=== PATIENT | female | born 1985 | race Caucasian/White ===

== ENCOUNTER 2024-12-19 12:12 | Outpatient (CLI) | payer BC, SELFPAY ==
--- NOTE | 2024-12-19 | ECG_ITS ---
Test Date: 2024-12-19 12:29:14 Measurements Intervals [place] Rate: 64 P: 33 TX: 146 QRS: 34 QRSD: 93 T: 21 QT: 414 QTc: 428 Interpretive Statements SINUS RHYTHM INCOMPLETE RIGHT BUNDLE BRANCH BLOCK BORDERLINE ECG No previous ECG available for comparison Electronically Signed On 12-19-2024 12:57:09 CDT by Kolby Licona D.O.
--- OUTSIDE RECORDS SUMMARY | 2024-12-19 13:14 | XMS_ITS | Encounter Summary ---
Author Organization [facility] Address [address] [place] [address] Care Team Providers Care Quality Assurance Supervisor Chassis Name Role Phone Aileen Monson MD Primary Care Provider [phone] Jodie Borden DO Primary Care Provider [phone] Encounter Details Date Type Department Care Team (Late st Contact Info) Description 05/23/2021 Photos I Like Message [employer] [facility] for [address] [address] Jalen Mitchell MD [address] [address] RE: Question Social History Tobacco Use Types Packs/Day Years Used Date Smoking Tobacco: Former Cigarettes 0.5 10 Smokeless Tobacco: Never Alcohol Use Standard Drinks/Week Comments Yes 3.3 (1 standard drink = 0.6 oz p ure alcohol) once a month AUDIT-C Answer Date Recorded Q1: How often do you have a drink containing alc ohol? Monthly or less 01/30/2020 Average Number of Drinks Not on file 020 Frequency of Binge Drinking Not on file 01/05 PHQ-2 Answer Date Recorded PHQ-2 Score - If the patient scores above 3, please move on to questions 3-9 0 03/06/2021 Comments No Sex and Gender Information Value Date Recorded Sex Assigned at Not on file Legal Sex Female 6:06 PM CDT Gender Identity Not on file Sexual Orientation Not on file COVID-19 Exposure Response Date Recorded In the last month, have you been in contact with someone who was confirmed or suspected to have Coronavirus / COVID-19? No / Unsure 05/06/2021 9:06 AM CDT documented as of this encounter Plan of Treatment Not on file documented as of this encounter Visit Diagnoses Not on filedocumented in this encounter Additional Health Concerns Assessment Noted Time PHQ-9 Depression Total Score: 0 03/06/20 21 3:21 PM CDT documented as of this encounter Care Teams Quality Assurance Supervisor Chassis Relationship Specialty Start Date End Date Aileen Monson MD PCP - General FAMILY PRACTICE 08/04/19 08/16/24 Jodie Borden DO [address] [place] [address] PCP - General FAMILY PRACTICE 08/17/24 documented as of this encounter
--- OUTSIDE RECORDS SUMMARY | 2024-12-19 13:14 | XMS_ITS | Referral Summary ---
Author Organization [address] Address [address] [place] [phone] Care Team Providers Care Drug Inspector Name Role Phone Jodie Borden DO Primary Care Provider [phone] Allergies No known active allergies Medications levothyroxine (SYNTHROID) 75 mcg tablet Take 1 tablet (75 mcg total) by mouth daily 9 Active norethindrone-et hin estradioL (Nortrel , 28,) 1-35 mg-mcg per tablet Take 1 tablet by mouth daily 2 Active SUMAtriptan (IMITREX) 50 mg tablet Take 1 tablet (50 mg total) by mouth daily as needed 9 Active triamcinolone (KENALOG) 0.1 % creamIndications :Rash and nonspecific skin eruption Apply to affected area 1-2 times daily as needed. Avoid face and groin. 80 g 5 09/14/19 26 Active Active Problems No known active problems Social History Tobacco Use Types Packs/Day Years Used Date Smoking Tobacco: Never Assessed Comments Unknown Sex and Gender Information Value Date Recorded Sex Assigned at Not on file Legal Sex Female 3:31 PM CDT Gender Identity Not on file Sexual Orientation Not on file Last Filed Vital Signs Vital Sign Reading Time Taken Comments Blood Pressure 106/66 09/14/2024 3:05 PM MENTAL HEALTH THERAPIST Pulse 74 09/14/2024 3:05 PM MENTAL HEALTH THERAPIST Temperature 36.7 C (98.1 F) 09/14/2024 3:05 PM MENTAL HEALTH THERAPIST Respiratory Rate 20 09/14/2024 3:05 PM MENTAL HEALTH THERAPIST Oxygen Saturation 98% 09/14/2024 3:05 PM MENTAL HEALTH THERAPIST Inhaled Oxygen Concentration - - Weight 75.3 kg (166 lb) 09/14/2024 3:05 PM MENTAL HEALTH THERAPIST Height - - Body Mass Index - - Plan of Treatment Not on file Insurance [employer] OOS Member Subscriber Plan / Payer (Ef fective 2023-Present) Name:Greta Keller Relation to Subscriber:Self Name:Greta Keller Payer ID:[id number] (NAIC) Type: SALAS Address: [facility] [id number] [place] [id number] Care Teams Drug Inspector Relationship Specialty Start Date End Date Jodie Borden DO [address] [facility] [address] [id number] PCP - General Family Medicine 09/14/24
--- OUTSIDE RECORDS SUMMARY | 2024-12-19 13:14 | XMS_ITS | Clinical Summary ---
Author Organization [facility] Address [address] [place] [address] Care Team Providers Care Geophysical Prospector Name Role Phone Jodie Borden DO Primary Care Provider [phone] Allergies No known active allergies Medications levothyroxine 75 MCG tablet Take 75 mcg by mouth daily. 07/27/2019 Active fluticasone propionate 50 MCG/ACT nasal spray 1 spray by Nasal route as needed. 01/03/2016 Active SUMAtriptan 50 MG tablet Take 50 mg by mouth 2 (two) times daily as needed. 05/15/2019 Active Active Problems Problem Noted Date Diagnosed Date ASCUS with positive high risk HPV cervical 03/04 Other specified hypothyroidism 01/30/2020 PCOS (polycystic ovarian syndrome) 01/30/2020 Immunizations Immunization Administration Dates Next Due Hepatitis B Pediatric 03/04/2004,04/14/2000 Influenza (Generic) 06/05/2016 Influenza Adult (Generic) 08/23/2020,06/05/2016 MODERNA COVID-19 (12+) MRNA, LNP-S, PF, 100 MCG/ 0.5 ML DOSE 04/05/2021,01/14/2021 Meningococcal (Menomune) 03/04/2004 Meningococcal(Mcv 4)Aka Menactra 03/04/2004 Td 04/14/2000 Td (Tenivac) preservative free 04/14/2000 Tdap (Generic) 11/15/2020 Family History Medical History Relation Comments Thyroid Disease Mother Relation Status Comments Father Alive Mother Alive Social History Tobacco Use Types Packs/Day Years Used Date Smoking Tobacco: Former Cigarettes 0.5 10 Smokeless Tobacco: Never Tobacco Cessation:Counseling Given: Yes Alcohol Use Standard Drinks/Week Comments Yes 3.3 [...] Sign Reading Time Taken Comments Blood Pressure 120/72 05/06/2021 9:13 AM CDT Pulse 60 04/21/2021 9:20 AM CDT Temperature 36.2 C (97.2 F) 04/21/2021 9:05 AM CDT Respiratory Rate 14 04/21/2021 9:20 AM CDT Oxygen Saturation 99% 04/21/2021 9:20 AM CDT Inhaled Oxygen Concentration - - Weight 78.8 kg (173 lb 12.8 oz) 05/06/2021 9:13 AM CDT Height 165.1 cm (5' 5 ) 05/06/2021 9:13 AM CDT Body Mass Index 28.92 05/06/2021 9:13 AM CDT Plan of Treatment Health Maintenance Due Date Last Done Comments Hepatitis B Vaccines (3 of 3 - 3-dose series) 04/29/2004 03/04/2004, 04/14/2000 Hepatitis C 2004 Annual Physical 02/04/2022 02/04/2021, 01/30/2020 Cervical Cancer Screening Pap with HPV Testing (Age 30 to 64) Every 5 Years 12/07/2023 12/06/2018, 03/16/2016 Cervical Cancer Screening Pap Smear (Age 30 to 64) Every 3 Years 02/05/2024 02/04/2021, 12/06/2018, 12/06/2018, Additional history exists Cervical Cancer Screening with HPV 02/05/2024 COVID-19 Vaccine ( season) 2024 04/05/2021, 01/14/2021 PHQ-2 (Physician [place]) 09/06/2024 DTaP, Tdap and Td Vaccines (3 - Td or Tdap) 11/15/2030 11/15/2020, 04/14/2000, 04/14/2000, Additional history exists Meningococcal Vaccine Aged Out 03/04/2004 No letty ariella eligible based on patient's age to complete this topic HPV Vaccines Aged Out No longer eligi ble based on patient's age to complete this topic Meningococcal B Vaccine Aged Out No l onger eligible based on patient's age to complete this topic Pneumococcal Vaccine: Pediatrics (0 to 5 Years) and At-Risk Patients (6 to 49 Years) Aged Out No longer eligible based on patient's age to complete this topic RSV Immunizations Under 20 Months Aged Out No longer eligible based on patient's age to complete this topic Procedures Procedure Name Priority Date/Time Associated Diagnosis Comments CYTOPATH CERV/VAG THIN LAYER Routine 02/04/2021 9:05 AM CDT from Last 3 Months or Most Recently Relevant to Health Maintenance Results * Cytopath Cerv/Vag Thin Layer (02/04/2021 9:05 AM CDT) THIN PREP PAP [address] [address] Department of Pathology Pathology Report CERVICAL/VAGINAL PAP SMEAR REPORT Name: DUONG SCHMITZ Age: 10 1985 (Age: 35) Location: [facility] Sex: F Collected Date: 02/04/2021 [facility] #: [id number] Date Received: 02/05/2021 Date Reported: 02/14/2021 Provider: PATTI FULTON INTERPRETATION ABNORMAL RESULT CERVICAL/ENDOCERVI SAMIRA: SATISFACTORY FOR EVALUATION. ENDOCERVICAL/TRANS FORMATION ZONE COMPONENT PRESENT. ATYPICAL SQUAMOUS CELLS OF UNDETERMINED SIGNIFICANCE. POSITIVE FOR HIGH RISK HPV. The FDA approved Aptima HPV assay is an in vitro nucleic acid amplification test for the qualitative detection of E6/E7 viral messenger RNA (mRNA) from 14 high-risk types of human papillomavirus (HPV) in cervical specimens. The high-risk HPV types detected by the assay include: 16,18,31,33,35,39, 45,51,52,56,58,59, 66, and 68. Electronically Signed Out MD [place], CT (ASCP) CLINICAL HISTORY Z01.419 SCREENING PAP TEST ThinPrep Pap Test with HR HPV on ASC-US or ABOVE diagnosis. Date of Last Menstrual Period: 01/27/21 Menstrual Status: Regular SPECIMEN SUBMITTED CERVICAL/ENDOCERVI SAMIRA Specimen Received:1 Thin Prep Vial, Image Assisted Pap (SMD) Please note: The Pap smear is not a diagnostic test. It is a screening test. Negative results on combined screening (Pap test and HPV-DNA) have a high negative predictive value (99.1-100 percent) for cervical cancer. The pap test is not effective in detecting cervical adenocarcinoma. [facility] 02/04/2021 9:05 AM CDT 02/05/2021 9:05 AM CDT Comment:CERVICAL/ENDOCERVICA L us Patti FULTON PATHOLOGY/CYTOLOGY ORDERABLE S Final Result [facility] [address] [place] [address], from Last 3 Months or Most Recently Relevant to Health Maintenance Insurance [facility] Advance Directives * Full Code (Latest Code Status on File) Date Activated Date Inactivated Comments 04/21/2021 8:50 AM 04/21/2021 12:55 PM Care Teams Geophysical Prospector Relationship Specialty Start Date End Date Jodie Borden DO [address] [place] [address] PCP - General FAMILY PRACTICE 08/17/24
--- OUTSIDE RECORDS SUMMARY | 2024-12-19 13:14 | XMS_ITS | Clinical Summary ---
Author Organization [facility] Address [address] [facility] [place] [address] Care Team Providers Care Stock Digger Name Role Phone Unavailable Primary Care Provider Unavailabl e Medications lisdexamfetamin e (Vyvanse) 20 mg capsule Take 1 Capsule (20 mg) by mouth daily in the morning. 30 Capsule 12/07/2024 3:04 PM CDT 12/07/2024 Active Encounters Date Type Department Care Team Description 12/12/2024 External Device Data [facility] Provider, Abstract 12/12/2024 External Device Data [facility] Provider, Abstract 12/12/2024 External Device Data [facility] Provider, Abstract from Last 3 Months Social History Tobacco Use Types Packs/Day Years Used Date Smoking Tobacco: Never Assessed Comments Unknown Sex and Gender Information Value Date Recorded Sex Assigned at Not on file Legal Sex Female 11:31 AM CDT Gender Identity Not on file Sexual Orientation Not on file Plan of Treatment Health Maintenance Due Date Last Done Comments DTAP/TDAP/TD VACCINES (1 - Tdap) 2005 HEPATITIS B VACCINES (1 of 3 - 19+ 3-dose series) 2005 HPV/Cotest (21-29) 2007 CERVICAL CANCER SCREENING 2016 HPV/Cotest (30-65) 2016 PAP SMEAR 2016 INFLUENZA VACCINE (#1) 2024 HPV VACCINES Aged Out No longer eligi ble based on patient's age to complete this topic Insurance [employer] Commercial
--- OUTSIDE RECORDS SUMMARY | 2024-12-19 13:14 | XMS_ITS | Encounter Summary ---
Author Organization [facility] Address [address] [place] [address] Care Team Providers Care Brush Trimming Machine Setter Name Role Phone Aileen Monson MD Primary Care Provider [phone] Jodie Borden DO Primary Care Provider [phone] Encounter Details Date Type Department Care Team (Late st Contact Info) Description 12/15/[address] [facility] [address] [address] Jalen Mitchell MD [address] [address] IVF with [facility] Social History Tobacco Use Types Packs/Day Years [...] on file Sexual Orientation Not on file documented as of this encounter Plan of Treatment Not on file documented as of this encounter Visit Diagnoses Not on filedocumented in this encounter Additional Health Concerns Assessment Noted Time PHQ-9 Depression Total Score: 0 03/06/20 21 3:21 PM CDT documented as of this encounter Care Teams Brush Trimming Machine Setter Relationship Specialty Start Date End Date Aileen Monson MD PCP - General FAMILY PRACTICE 08/04/19 08/16/24 Jodie Borden DO [address] [place] [address] PCP - General FAMILY PRACTICE 08/17/24 documented as of this encounter
--- OUTSIDE RECORDS SUMMARY | 2024-12-19 13:14 | XMS_ITS | Encounter Summary ---
Author Organization [facility] Address [address] [place] [address] Care Team Providers Care Agricultural Agent Name Role Phone Aileen Monson MD Primary Care Provider [phone] Jodie Borden DO Primary Care Provider [phone] Encounter Details Date Type Department Care Team (Late st Contact Info) Description 03/13/[address] Message [facility] [address] [place] [address] Patti Zayas PA [address] [place] [address] Test Results Social History Tobacco Use Types Packs/Day Years Used Date Smoking Tobacco: Former Smokeless Tobacco: Never Alcohol Use Standard Drinks/Week Comments Yes 0 (1 standard drink = 0.6 oz pur e alcohol) AUDIT-C Answer Date Recorded Q1: How often [...] have Coronavirus / COVID-19? No / Unsure 03/06/2021 2:57 PM CDT documented as of this encounter Progress Notes * Fabiola Jaramillo RN - 03/13/2021 7:44 AM CDT Called pt this morning and reviewed result with her. documented in this encounter Plan of Treatment Not on file documented as of this encounter Visit Diagnoses Not on filedocumented in this encounter Additional Health Concerns Assessment Noted Time PHQ-9 Depression Total Score: 0 03/06/20 21 3:21 PM CDT documented as of this encounter Care Teams Agricultural Agent Relationship Specialty Start Date End Date Aileen Monson MD PCP - General FAMILY PRACTICE 08/04/19 08/16/24 Jodie Borden DO [address] [place] [address] PCP - General FAMILY PRACTICE 08/17/24 documented as of this encounter
--- OUTSIDE RECORDS SUMMARY | 2024-12-19 13:14 | XMS_ITS | Clinical Summary ---
Author Organization [address] Address [address] [place] [address] Care Team Providers Care Assistant Controller Name Role Phone Jodie Borden DO Primary Care Provider [phone] Allergies No known active allergies Medications levothyroxine [...] on file Sexual Orientation Not on file Obstetrics History Last Filed Vital Signs Vital Sign Reading Time Taken Comments Blood Pressure 106/66 09/14/2024 3:05 PM DIRECTOR REVENUE Pulse 74 09/14/2024 3:05 PM DIRECTOR REVENUE Temperature 36.7 C (98.1 F) 09/14/2024 3:05 PM DIRECTOR REVENUE Respiratory Rate 20 09/14/2024 3:05 PM DIRECTOR REVENUE Oxygen Saturation 98% 09/14/2024 3:05 PM DIRECTOR REVENUE Inhaled Oxygen Concentration - - Weight 75.3 kg (166 lb) 09/14/2024 3:05 PM DIRECTOR REVENUE Height - - Body Mass Index - - Plan of Treatment Health Maintenance Due Date Last Done Comments Depression Screening 1985 Hepatitis C Screening 1985 Varicella Vaccines (1 of 2 - 13+ 2-dose series) 1999 Regular Well Visit/Exam 18-64 2004 Cervical Cancer Screening 02/04/2022 02/04/2021 Covid-19 Vaccine (4 - 2023-2 5 season) 2024 10/14/2021, 04/04/2021, 01/14/2021 Influenza Vaccine (Season Ended) 2025 08/23/2020, 06/05/2016 DTaP/Tdap/Td Vaccine (2 - Td or Tdap) 11/15/2030 11/15/2020, 04/14/2000 Hepatitis B Screening Completed 03/04/2004 , 04/14/2000 HPV Vaccines Aged Out No longer eligi ble based on patient's age to complete this topic Pneumococcal vaccine <65 Aged Out No longer eligible based on patient's age to complete this topic Insurance [employer] O[employer] Care Teams Assistant Controller Relationship Specialty Start Date End Date Jodie Borden DO [facility] [address] [place] [address] [place] [id number] PCP - General Family Medicine 09/14/24
--- OUTSIDE RECORDS SUMMARY | 2024-12-19 13:14 | XMS_ITS | Encounter Summary ---
Author Organization [facility] Address [address] [place] [address] Care Team Providers Care Janitorial Assistant Name Role Phone Aileen Monson MD Primary Care Provider [phone] Jodie Borden DO Primary Care Provider [phone] Encounter Details Date Type Department Care Team (Latest Contact Info) Description 12/09/2017 Abstract [facility] Patti Zayas PA [address] [place] [address] Social History Tobacco Use Types Packs/Day Years Used Date Smoking Tobacco: Never Assessed Comments Unknown Sex and Gender Information Value Date Recorded Sex Assigned at Not on file Legal Sex Female 6:06 PM CDT Gender Identity Not on file Sexual Orientation Not on file documented as of this encounter Miscellaneous Notes * Letter - DONALDO Pino - 12/09/2017 12:[address] [facility] [address] [place] [place] [address] [place] [address] Date: 12-09-2017 Greta Keller [address] [place] [address] D.O.B: 1985 Dear: Greta The result of your recent pap smear was normal. If you have any questions please call our office [phone]. Sincerely, Patti FULTON documented in this encounter Plan of Treatment Not on file documented as of this encounter Visit Diagnoses Not on filedocumented in this encounter Care Teams Janitorial Assistant Relationship Specialty Start Date End Date Aileen Monson MD PCP - General FAMILY PRACTICE 08/04/19 08/16/24 Jodie Borden DO [address] [place] [address] PCP - General FAMILY PRACTICE 08/17/24 documented as of this encounter
== END 2024-12-19 12:13 | disposition home or self-care (01) ==
LOC: ANHLAB 12:15
PROVIDERS: PCP Family Medicine; Visit Provider Nurse Practitioner Family
DX: Z51.81 Encounter for therapeutic drug level monitoring (principal); I45.10 Unspecified right bundle-branch block
CPT/HCPCS: 93005